=== PATIENT | female | born 1970 | race Caucasian/White ===

== ENCOUNTER 2018-07-21 16:00 | Emergency (ER) | payer OTHER ==
[2018-07-21] MEDS: CEFTRIAXONE 1 GM INJ IM (18:39)
[2018-07-21] MEDS: KETOROLAC 30 MG INJ IM (18:40)
== END 2018-07-21 20:16 | disposition home or self-care (01) ==
LOC: FTE 16:00
DX: H60.93 Unspecified otitis externa, bilateral (principal)
CPT/HCPCS: 70480; 81025; 96372; 99285-25